=== PATIENT | female | born 1985 | race Caucasian/White ===

== ENCOUNTER 2023-07-15 15:15 | Emergency (ER) | payer OTHER, SELFPAY ==
[2023-07-15 15:47] VITALS: BP 118/75; PULSE 73; RESP 18; TEMP 36.6; O2SAT 97; BMI 30.2
[2023-07-15 16:53] LABS: Basophils % 0.4 %; Eosinophils # 0.1 10^3/uL (0.0-0.8); Eosinophils % 1.6 %; Hematocrit 43.3 % (36-47); Lymphocytes # 2.1 10^3/uL (0.8-4.8); Mean Corpuscular HGB Conc 33.9 g/dL (30-55); Mean Corpuscular Hemoglobin 31.3 pg (27-33); Mean Corpuscular Volume 92.3 fl (85-98); Mean Platelet Volume 10.6 fL (7.4-10.4); Monocytes # 0.3 10^3/uL (0.2-0.9); Monocytes % 6.2 %; Neutrophils # 2.55 10^3/uL (1.8-7.7); Neutrophils % 50.8 %; Nucleated Red Blood Cells % 0 %; Platelet Count 228 10^3/cmm (157-399); Red Blood Count 4.69 10^6/uL (3.85-5.65); Red Cell Distribution Width 12.2 % (12.1-15.1); White Blood Count 5.02 10^3/uL (3.29-11.43)
[2023-07-15 17:19] LABS: Alanine Aminotransferase 23 U/L (0-33); Albumin Level 4.4 g/dL (3.5-5.2); Alkaline Phosphatase 58 U/L (35-105); Anion Gap 12.6 (5-19); Aspartate Amino Transferase 23 U/L (0-32); Blood Urea Nitrogen 15 mg/dL (6-20); Calcium 9.4 mg/dL (8.5-10.5); Carbon Dioxide 28 mmol/L (22-29); Chloride 102 mmol/L (98-107); Globulin 2.9 g/dL (1.3-4.6); Glomerular Filtration Rate 69.7 mL/min (90-130); Glucose 90 mg/dL (65-115); Osmolality Calculated 286 mOsm/kg (285-295); Potassium 4.6 mmol/L (3.5-5.1); Sodium 138 mmol/L (136-145); Total Bilirubin 0.3 mg/dL (0.15-1.2); Total Protein 7.3 g/dL (6.6-8.7)
--- NOTE | 2023-07-15 17:45 | XRR_ITS ---
PROCEDURE INFORMATION: Exam: XR Chest Exam date and time: 07/15/2023 5:51 PM Age: 37 years old Clinical indication: Shortness of breath; Additional info: Lupus flare TECHNIQUE: Imaging protocol: Radiologic exam of the chest. Views: 1 view. COMPARISON: No relevant prior studies available. FINDINGS: Lungs: Unremarkable. No consolidation. Pleural spaces: Unremarkable. No pleural effusion. No pneumothorax. Heart/Mediastinum: Unremarkable. No cardiomegaly. Bones/joints: Unremarkable. XR/XR chest 1V portable [id number] IMPRESSION: No acute findings.
--- NOTE | 2023-07-15 17:48 | PC.NURSE ---
ASSUMED CARE AT 1730
--- NOTE | 2023-07-15 17:57 | ED_ITS ---
HPI - General Adult 2 General: Chief complaint: General Medical Stated complaint: lupus flair,dx lupus Time Seen by Provider: 07/15/23 17:42 History of Present Illness: 37-year-old female presents to the [facility] ency department with complaints of having a lupus flare. She states that she was diagnosed several years ago in [facility] where she initially lived. She states she is now down in this area because her is and they have moved to this area. She states that she initially was diagnosed with her lupus flare secondary to a malar rash and a generalized chest rash as well as increased fatigue and malaise and renal dysfunction when she was in [facility]. She states that she has been doing well since that time. She states since moving here she is trying to be, established with her primary care provider and a communications assistant. She states she does take hydroxychloroquine on a regular basis. She states over the past 4 days she started noticing that she was having a lupus flare as she has increased generalized pain and kidney pain as well as headache. She states she has had increasing joint pain over the same duration of time. She denies fevers chills or night sweats. She denies known recent trauma or injury. She states her current generalized joint pain is a 5 out of 10, and movement of course makes the pain worse. Associated symptoms: Reports headache(s) Review of Systems 2 General: Reports: 10 or more systems reviewed and unremarkable except in HPI and below Musc: Reports: extremity pain, joint pain and muscle weakness Neuro: Reports: headache(s) and dizziness Physical Exam 2 Narrative: EXAM NARRATIVE: Constitutional: the patient appears well nourished and with normal development. Vital signs reviewed as documented. No acute distress. HENMT: Normocephalic, atraumatic. Extermal ears with normal appearance without drainage. Nose without drainage, normal appearance. Mucus membranes moist. Neck is supple, No jugular venous distension, trachea is midline, no appreciable carotid bruits. No lymphadenopathy. No meningeal signs. Flexion, extension and lateral rotation is without pain. Eyes: Pupils are equal, round, reactive to light and accommodation. No scleral icterus. Extra-ocular movement are intact. Thorax is symmetrical and with equal rise and fall with respirations. Resp: Lungs are clear to auscultation. No wheezes, rales, crackles or ronchi at present. Cardio: Regular rate and rhythm. Positive S1, S2. No appreciable murmurs, rubs or gallops. GI: Abdominal exam reveals normal bowel sounds to all quadrants. No organomegaly. No obvious palpable masses noted. No hepatomegally appreciated. Soft, nontender to palpation. Extremity: Extremities are non-edematous and both femoral and pedal pulses are 2+ and equal bilaterally. Moves all extremities well, sensation in all extremities. Neuro: Alert and oriented x4, person, place, time and situation. Cranial nerves II through XII are grossly intact, there is no focal neurological deficits that I can appreciate at present. Motor strength in the upper and lower extremities are equal and bilateral 5/5. Psych: Cooperative, calm, normal thought process, appropriate judgment. Skin: No lesions, rashes. No gross abnormalities noted. Back: Symmetrical, no obvious deformity, No CVA tenderness Course 2 Reevaluation(s): Reevaluation #1: Reevaluation of the patient's demonstrates significant improvement in control of her pain. The patient did receive corticosteroid and nonsteroidal anti- inflammatory ketorolac. I will prescribe her prednisone and naproxen and I have also provided her with follow-up with primary care provider and rheumatology. Her twelve-lead EKG did not show any abnormality I reviewed her radiographic examination of her chest and there is no significant finding there. I discussed her laboratory findings with her. Time: 19:06 Vital Signs: Vital signs: Vital Signs Temperature 97.9 F 07/15/23 15:47 Pulse Rate 63 07/15/23 18:22 Respiratory Rate 18 07/15/23 15:47 Blood Pressure 109/67 07/15/23 18:22 Pulse Oximetry 99 07/15/23 18:22 Oxygen Delivery Me thod Room Air 07/15/23 18:22 MDM - General Adult Medical Decision Making Physical exam completed and documented, I will obtain a CBC, CMP, ESR chest x- ray and EKG for evaluation. I will provide her Toradol and high-dose corticosteroids for her lupus flare. Will also provide her written prescriptions for NSAIDs and corticosteroids. I discussed with the options for primary care and rheumatology in the area and we will provide her that information upon discharge. Differential Diagnosis Myalgias, lupus flare, Lab Data I reviewed the patient's lab results. 07/15/23 16:30 07/15/23 16:30 Radiology Impressions Chest X-Ray 07/15/23 17:45 IMPRESSION: No acute findings. Laboratory Results WBC 5.02 10^3/uL (3.29-11.43) 07/15/23 16:30 RBC 4.69 10^6/uL (3.85-5.65) 07/15/23 16:30 Hgb 14.70 g/dL (11.27-16.99) 07/15/23 16:30 Hct 43.3 % (36-47) 07/15/23 16:30 MCV 92.3 fl (85-98) 07/15/23 16:30 MCH 31.3 pg (27-33) 07/15/23 16: MCHC 33.9 g/dL (30-55) 07/15/23 16:30 RDW 12.2 % (12.1-15.1) 07/15/23 16:30 Plt Count 228 10^3/cmm (157-399) 07/15/23 16:30 MPV 10.6 fL (7.4-10.4) H 07/15/23 16:30 Neut % (Auto) 50.8 % 07/15/23 16:30 Lymph % (Auto) 41.0 % 07/15/23 16:30 Early % (Auto) 6.2 % 07/15/23 16:30 Eos % (Auto) 1.6 % 07/15/23 16:30 Baso % (Auto) 0.4 % 07/15/23 16:30 Neut # (Auto) 2.55 10^3/uL (1.8-7.7) 07/15/23 16:30 Lymph # (Auto) 2.1 10^3/uL (0.8-4.8) 07/15/23 16:30 Early # (Auto) 0.3 10^3/uL (0.2-0.9) 07/15/23 16:30 Eos # (Auto) 0.1 10^3/uL (0.0-0.8) 07/15/23 16:30 Baso # (Auto) 0.0 10^3/uL (0.0-0.1) 07/15/23 16:30 Nucleated RBC % (auto) 0 % 07/15/23 16:30 Nucleated RBCs # 0.0 /100WBC 07/15/23 16:30 Sodium 138 mmol/L (136-145) 07/15/23 16:30 Potassium 4.6 mmol/L (3.5-5.1) 07/15/23 16:30 Chloride 102 mmol/L (98-107) 07/15/23 16:30 Carbon Dioxide 28 mmol/L (22-29) 07/15/23 16:30 Anion Gap 12.6 (5-19) 07/15/23 16:30 BUN 15 mg/dL (6-20) 07/15/23 16:30 Creatinine 0.9 mg/dL (0.5-0.9) 07/15/23 16:30 GFR Calculation 69.7 mL/min (90-130) L 07/15/23 16:30 Glucose 90 mg/dL (65-115) 07/15/23 16:30 Calculated Osmolality 286 mOsm/kg (285-295) 07/15/23 16:30 Calcium 9.4 mg/dL (8.5-10.5) 07/15/23 16:30 Total Bilirubin 0.3 mg/dL (0.15-1.2) 07/15/23 16:30 AST 23 U/L (0-32) 07/15/23 16:30 ALT 23 U/L (0-33) 07/15/23 16:30 Alkaline Phosphatase 58 U/L (35-105) 07/15/23 16:30 Total Protein 7.3 g/dL (6.6-8.7) 07/15/23 16:30 Albumin 4.4 g/dL (3.5-5.2) 07/15/23 16:30 Globulin 2.9 g/dL (1.3-4.6) 07/15/23 16:30 Urine Color Yellow (Yellow) 07/15/23 17:50 Urine Appearance Clear (CLEAR) 07/15/23 17:50 Urine pH 7 (5-7) 07/15/23 17:50 Ur Specific [place] 1.010 (1.005-1.030) 07/15/23 17:50 Urine Protein Neg (Negative) 07/15/23 17:50 Urine Glucose (UA) Norm (Normal) 07/15/23 17:50 Urine Ketones Negative (Negative) 07/15/23 17:50 Urine Blood Neg (Negative) 07/15/23 17:50 Urine Nitrate Negative (Negative) 07/15/23 17:50 Urine Bilirubin Neg (Negative) 07/15/23 17:50 Urine Urobilinogen Norm mg/dL (Negative) 07/15/23 17:50 Ur Leukocyte Esterase Negative (Negative) 07/15/23 17:50 All radiology interpretation(s) finalized by discharge EKG Data Twelve-lead EKG obtained at 1813 reviewed at 1814 demonstrates underlying sinus rhythm with sinus arrhythmia with respiratory variation. Ventricular : Computer generated interpretation: Chest X-Ray 07/15/23 17:45 IMPRESSION: No acute findings. Discharge Plan Discharge Patient Disposition: Home Clinical Impression: Lupus arthritis, Myalgia Arthralgia Qualifiers: Joint pain location: wrist Laterality: right Qualified Code(s): M25.531 - Pain in right wrist Condition: Stable Prescriptions: New prednisone 20 mg tablet 60 mg PO DAILY 5 Days Qty: 15 0RF naproxen 500 mg tablet 500 mg PO Q12H PRN (Reason: pain) Qty: 60 0RF Discharge Orders: Discharge ED (Routine); Ordered 07/15/23 Ordered By: Maurice Oglesby Referrals: Diann Greenwood MD [Physician] - Nagi Lopez DO [Physician] - Discharge Diet: Advance as tolerated Discharge Activity: Resume usual activity Patient Instructions: Opioid Safety, Pain Management Activity Restrictions/Additional Instructions: Activity Restrictions/Additional Instructions: Thank you for choosing [facility] for your healthcare needs today. Please realize that you were seen in the Emergency Department and that we are providing you with an emergency medical screening exam and this may not be complete and all inclusive of all the testing and or medical work-up that you may need to determine your ailment or severity of your illness. It is very important that you follow-up as instructed with your Primary care provider or Specialist for additional evaluation and to discuss your medical treatment plan. You may return to the Emergency Department should you have concerns or if your condition changes or worsens in any way. Coding Level of Care Code ED Master [employer]acht for Cher Antoine
--- NOTE | 2023-07-15 18:13 | ECG_ITS ---
[facility] Test Date: 2023-07-15 Pat Name: Lalitha Cates Department: Room: Gender: Female Posting Clerk: : 1985 Requested By: Maurice Oglesby Order Number: [id number] Dash MD: Annita Farris M.D. Measurements Intervals [place] Rate: 68 P: 62 WY: 142 QRS: 39 QRSD: 71 T: 55 QT: 394 QTc: 420 Interpretive Statements SINUS RHYTHM WITH SINUS ARRHYTHMIA No previous ECG available for comparison Electronically Signed On 07-15-2023 22:13:42 FUEL RETROFITTING TECHNICIAN by Annita Farris M.D. [id number]
[2023-07-15 18:22] VITALS: BP 109/67; PULSE 63; O2SAT 99
[2023-07-15 18:30] VITALS: BP 109/66; PULSE 67; O2SAT 100
[2023-07-15] MEDS: methylPREDNISolone sod succ 125 mg/2 mL INJ IVP (18:30)
[2023-07-15] MEDS: ketorolac 30 mg/mL INJ IVP (18:30)
[2023-07-15 18:35] LABS: Add Urine Microscopic? NO; Charge for UA Resulting for Rev
[2023-07-15 18:44] LABS: Bilirubin Urine Neg (Negative); Blood Urine Neg (Negative); Glucose Urine UA Norm (Normal); Ketones Urine Negative (Negative); Leukocyte Esterase Urine Negative (Negative); Nitrate Urine Negative (Negative); Protein Urine Neg (Negative); Urine Appearance Clear (CLEAR); Urine Color Yellow (Yellow); Urobilinogen Urine Norm (Negative); pH Urine 7 (5-7)
[2023-07-15 19:28] VITALS: BP 103/68; PULSE 62; O2SAT 99
[2023-07-15 20:46] LABS: HCG Qualitative Urine. Negative (Negative)
== END 2023-07-15 19:32 | disposition home or self-care (01) ==
PROVIDERS: Emergency Medicine; Physician Assistant; Emergency Provider Internal Medicine
DX: M32.9 Systemic lupus erythematosus, unspecified (principal); M25.531 Pain in right wrist; M13.80 Other specified arthritis, unspecified site; M79.10 Myalgia, unspecified site
CPT/HCPCS: 36415; 71045; 80053; 81003; 81025; 85025; 93005; 96374; 96375; 99285; J1885; J2930

== ENCOUNTER → 2023-08-14 14:19 | Outpatient (BNVA) | payer OTHER, SELFPAY | PROVIDERS: Visit Provider Registered Nurse Neonatal Intensive Care | DX: R05.9 Cough, unspecified (principal); J06.9 Acute upper respiratory infection, unspecified | CPT/HCPCS: 87400; 87426 ==

== ENCOUNTER 2024-12-21 11:41 | Emergency (ER) | payer OTHER, SELFPAY ==
[2024-12-21 11:53] VITALS: BP 112/88; PULSE 112; RESP 16; TEMP 36.6; O2SAT 98; BMI 26.6
[2024-12-21 12:21] LABS: Basophils % 0.4 %; Eosinophils # 0.1 10^3/uL (0.0-0.8); Eosinophils % 1.5 %; Hematocrit 41.9 % (36-47); Lymphocytes # 1.7 10^3/uL (0.8-4.8); Lymphocytes % 33.7 %; Mean Corpuscular HGB Conc 34.4 g/dL (30-55); Mean Corpuscular Hemoglobin 30.8 pg (27-33); Mean Corpuscular Volume 89.7 fl (85-98); Mean Platelet Volume 10.6 fL (7.4-10.4); Monocytes # 0.4 10^3/uL (0.2-0.9); Neutrophils # 2.97 10^3/uL (1.8-7.7); Neutrophils % 57.4 %; Nucleated Red Blood Cells % 0 %; Platelet Count 218 10^3/cmm (157-399); Red Blood Count 4.67 10^6/uL (3.85-5.65); Red Cell Distribution Width 12.3 % (12.1-15.1); White Blood Count 5.17 10^3/uL (3.29-11.43)
[2024-12-21 12:47] LABS: Alanine Aminotransferase 18 U/L (0-33); Albumin Level 4.2 g/dL (3.5-5.2); Alkaline Phosphatase 62 U/L (35-105); Aspartate Amino Transferase 23 U/L (0-32); Blood Urea Nitrogen 8 mg/dL (6-20); Calcium 9.3 mg/dL (8.5-10.5); Carbon Dioxide 25 mmol/L (22-29); Chloride 106 mmol/L (98-107); Globulin 3.2 g/dL (1.3-4.6); Glomerular Filtration Rate 92.2 mL/min (90-130); Glucose 92 mg/dL (65-115); Osmolality Calculated 288 mOsm/kg (285-295); Sodium 140 mmol/L (136-145); Total Bilirubin 0.4 mg/dL (0.15-1.2); Total Protein 7.4 g/dL (6.6-8.7)
--- NOTE | 2024-12-21 14:56 | W.ED.GENADLT ---
HPI - General Adult General: Chief complaint: General Medical Stated complaint: loopis flare Time Seen by Provider: 12/21/24 13:31 Source: patient Mode of arrival: ambulatory Limitations: no limitations History of Present Illness: Patient is a 39-year-old female presenting to the emergency department with 6 days of lower extremity skin lesions and concerns for a possible lupus flare. Patient reports that this started as a mosquito bite on her left lower extremity which became itchy, swollen, and painful. She reports that more of these lesions appeared on her bilateral lower extremities, hips, and buttocks over the last 5 days. She states that they are warm to touch and have a nodule underneath. Has had identical lesions before with lupus flares. Patient reports occasional subjective fevers, tmax on measured fevers was 101 ?F once. She also complains of fatigue, nausea and decreased appetite. She also reports intermittent blurry vision that quickly resolves. She remains consistent on her maintenance hydroxychloroquine and has been taking prednisone 50 mg daily for the last 6 days. Does not see rheumatology. Onset (ago): week(s) Location: buttocks and lower extremity (Bilateral) Severity: moderate Quality: burning and aching Pain Consistency: constant Relieving factors: none Exacerbating factors: movement Associated symptoms: Reports decreased appetite, nausea and rash; Deny chest pain, dyspnea, palpitations, syncope or vomiting Treatments prior to arrival: other (Prednisone 50 mg daily x 6 days) Related Data Home Medications ?Medication ?Instructions ?Recorded ?Confirmed hydroxychloroquine 200 mg tablet 200 mg PO BID 12/21/24 12/21/24 levothyroxine 75 mcg tablet 75 mcg PO DAILY 12/21/24 12/21/24 montelukast 10 mg tablet 10 mg PO DAILY 12/21/24 12/21/24 phentermine 37.5 mg capsule 37.5 mg PO QAM 12/21/24 12/21/24 sulfamethoxazole 800 1 tab PO BID 12/21/24 12/21/24 mg-trimethoprim 160 mg tablet Previous Rx's ?Medication ?Instructions ?Recorded naproxen 500 mg tablet 500 mg PO Q12H PRN pain #60 tabs 07/15/23 Allergies Allergy/AdvReac Type Severity Reaction Status Date / Time diphenhydramine Allergy ADR-Irritab Verified 08/14/23 14:12 le nitrofurantoin (From Allergy ALGY-Hives Verified 08/14/23 14:12 Macrobid) Review of Systems Const: Reports: fever(s) (one fever reading of 101), body aches, change in appetite and fatigue; Denies: chills Eyes: Reports: blurry vision (occasional/lasting seconds); Denies: floaters or seeing flashes ENMT: Denies: throat pain, odynophagia or oral sores Card: Denies: chest pain, palpitations, irregular heart rhythm, edema, syncope or pre-syncope Resp: Denies: dyspnea GI: Reports: nausea; Denies: abdominal pain, vomiting or diarrhea : Denies: flank pain or dysuria Musc: Reports: extremity pain and joint pain; Denies: neck pain, back pain, extremity swelling (Bilateral lower extremities), joint swelling, joint redness, joint warmth, limited range of motion, muscle cramps or muscle weakness Skin/Breast: Reports: rash, erythema, skin pain and skin tenderness Neuro: Reports: difficulty walking (due to pain in legs); Denies: numbness in extremities, weakness in extremities or sensory changes Physical Exam Const: COMMON NORMALS: no acute distress, average body habitus, patient oriented x3, no limitations, healthy appearing, alert and well nourished HENMT: COMMON NORMALS: normocephalic, atraumatic and hearing grossly normal bilaterally HEAD & SCALP: normocephalic and atraumatic Eye: COMMON NORMALS: Equal, round and reactive pupils present, EOMs intact bilaterally and conjunctivae normal CONJUNCTIVA: Yes conjunctivae normal PUPIL: Yes Equal, round and reactive pupils present Neck/C-Spine: COMMON NORMALS: no lymphadenopathy and no JVD Chest: COMMONS NORMALS: normal inspection of the chest and normal palpation of entire chest wall Resp: COMMON NORMALS: normal respiratory effort, No retractions, No use of accessory muscles and clear to auscultation bilaterally AUSCULTATION: clear to auscultation bilaterally Cardio: COMMON NORMALS: no JVD, regular rate, regular rhythm, S1 normal heart sound present and S2 normal heart sound present RATE: regular rate RHYTHM: regular rhythm HEART SOUNDS: S1 normal heart sound present and S2 normal heart sound present Back/Pelvis: COMMON NORMALS: thoracic and lumbar spine normal to inspection Extremity: COMMON NORMALS: capillary refill normal, no joint enlargement, no clubbing, cyanosis or edema, no calf tenderness and no pedal edema GENERAL: Yes normal exam except as noted, No clubbing, No edema and No mottling OTHER: scattered erythematous nodules to bilateral LEs that are tender to touch; maybe 7 in total between the two lower legs; legs otherwise are normal in appearance without edema; NV intact Neuro: HELEN COMA SCALE: document GCS findings [place] coma scale eye opening: Spontaneous Helen coma scale verbal response: Orientated Helen coma scale motor response: Obey commands Helen coma scale total score: 15 COMMON NORMALS: patient oriented x3, moves all extremities, no focal motor deficits and no sensory deficits noted SENSORIUM/ORIENTATION: Yes alert Skin: NARRATIVE SKIN EXAM: see above Course Vital Signs: Vital signs: Vital Signs Temperature 97.9 F 12/21/24 11:53 Pulse Rate 93 12/21/24 16:12 Respiratory Rate 16 12/21/24 11:53 Blood Pressure 98/55 12/21/24 16:12 Pulse Oximetry 96 12/21/24 16:12 Oxygen Delivery Me thod Room Air 12/21/24 16:12 MDM - General Adult Medical Decision Making Patient clinically appears in absolutely no acute distress. Vital signs were stable upon arrival and have been throughout her ED stay. Last repeat blood pressure was low at 98/55 but she was soundly sleeping. Blood work showing a normal white count. She has a normal ESR. Scantly elevated CRP at 7.5. Her chemistry is unremarkable. The differential for patient's symptoms including joint/extremity pain, erythematous nodular rash, and other nonspecific symptoms is vast. At this time I have a low suspicion for emergent or life-threatening etiology. Certainly this could be a lupus flare. She was given IV Solu-Medrol and Toradol here. Recommend she follow-up with her primary care provider later this week. Case management referral was placed to get her set up with Dr. Crocker here at [facility] for rheumatology care. Return precautions discussed. Medical Records I reviewed the patient's medical records. Lab Data I reviewed the patient's lab results. 12/21/24 12:12 12/21/24 12:12 Laboratory Results WBC 5.17 10^3/uL (3.29-11.43) 12/21/24 12:12 RBC 4.67 10^6/uL (3.85-5.65) 12/21/24 12:12 Hgb 14.40 g/dL (11.27-16.99) 12/21/24 12:12 Hct 41.9 % (36-47) 12/21/24 12:12 MCV 89.7 fl (85-98) 12/21/24 12:12 MCH 30.8 pg (27-33) 12/21/24 12:12 MCHC 34.4 g/dL (30-55) 12/21/24 12:12 RDW 12.3 % (12.1-15.1) 12/21/24 12:12 Plt Count 218 10^3/cmm (157-399) 12/21/24 12:12 MPV 10.6 fL (7.4-10.4) H 12/21/24 12:12 Neut % (Auto) 57.4 % 12/21/24 12:12 Lymph % (Auto) 33.7 % 12/21/24 12:12 Martin % (Auto) 7.0 % 12/21/24 12:12 Eos % (Auto) 1.5 % 12/21/24 12:12 Baso % (Auto) 0.4 % 12/21/24 12:12 Neut # (Auto) 2.97 10^3/uL (1.8-7.7) 12/21/24 12:12 Lymph # (Auto) 1.7 10^3/uL (0.8-4.8) 12/21/24 12:12 Martin # (Auto) 0.4 10^3/uL (0.2-0.9) 12/21/24 12:12 Eos # (Auto) 0.1 10^3/uL (0.0-0.8) 12/21/24 12:12 Baso # (Auto) 0.0 10^3/uL (0.0-0.1) 12/21/24 12:12 Nucleated RBC % (auto) 0 % 12/21/24 12:12 Nucleated RBCs # 0.0 /100WBC 12/21/24 12:12 ESR 5 mm/hr (0-15) 12/21/24 12:12 Sodium 140 mmol/L (136-145) 12/21/24 12:12 Potassium 4.0 mmol/L (3.5-5.1) 12/21/24 12:12 Chloride 106 mmol/L (98-107) 12/21/24 12:12 Carbon Dioxide 25 mmol/L (22-29) 12/21/24 12:12 Anion Gap 13.0 (5-19) 12/21/24 12:12 BUN 8 mg/dL (6-20) 12/21/24 12:12 Creatinine 0.7 mg/dL (0.5-0.9) 12/21/24 12:12 GFR Calculation 92.2 mL/min (90-130) 12/21/24 12:12 Glucose 92 mg/dL (65-115) 12/21/24 12:12 Calculated Osmolality 288 mOsm/kg (285-295) 12/21/24 12:12 Calcium 9.3 mg/dL (8.5-10.5) 12/21/24 12:12 Total Bilirubin 0.4 mg/dL (0.15-1.2) 12/21/24 12:12 AST 23 U/L (0-32) 12/21/24 12:12 ALT 18 U/L (0-33) 12/21/24 12:12 Alkaline Phosphatase 62 U/L (35-105) 12/21/24 12:12 C-Reactive Protein 7.5 mg/L (0.0-4.9) H 12/21/24 12:12 Total Protein 7.4 g/dL (6.6-8.7) 12/21/24 12:12 Albumin 4.2 g/dL (3.5-5.2) 12/21/24 12:12 Globulin 3.2 g/dL (1.3-4.6) 12/21/24 12:12 No radiology studies performed this visit Discharge Plan Discharge Patient Disposition: Home Clinical Impression: Erythematous skin nodule Joint pain Qualifiers: Joint pain location: unspecified Qualified Code(s): M25.50 - Pain in unspecified joint Condition: Stable Prescriptions: No Action sulfamethoxazole-trimethoprim 800-160 mg tablet 1 tab PO BID levothyroxine 75 mcg tablet 75 mcg PO DAILY montelukast 10 mg tablet 10 mg PO DAILY hydroxychloroquine 200 mg tablet 200 mg PO BID phentermine 37.5 mg capsule 37.5 mg PO QAM naproxen 500 mg tablet 500 mg PO Q12H PRN (Reason: pain) Qty: 60 0RF Discharge Orders: Discharge ED (Routine); Ordered 12/21/24 Ordered By: Maryan Raya Activity Restrictions/Additional Instructions: As we discussed, please follow-up with primary care later this week for re-evaluation. Your blood work here was reassuring. Continue your prednisone and anti-inflammatories at home. You may return to the emergency department at anytime for any further concerns you may have. Print Language: Khmer Coding Level of Care Code ED Electronic Warfare Technician for Cher Antoine
[2024-12-21 15:06] LABS: Erythrocyte Sedimentation Rate 5 mm/hr (0-15)
[2024-12-21 15:29] LABS: C Reactive Protein 7.5 mg/L (0.0-4.9)
[2024-12-21] MEDS: ketorolac 30 mg/mL INJ IVP (15:47)
[2024-12-21] MEDS: methylPREDNISolone sod succ 125 mg/2 mL INJ IVP (15:47)
[2024-12-21 16:12] VITALS: BP 98/55; PULSE 93; O2SAT 96
[2024-12-21 16:31] VITALS: BP 98/55; PULSE 78; O2SAT 91
== END 2024-12-21 16:32 | disposition home or self-care (01) ==
PROVIDERS: Emergency Medicine; Emergency Provider Physician Assistant
DX: L53.9 Erythematous condition, unspecified (principal)
CPT/HCPCS: 36415; 80053; 85025; 85651; 86140; 96374; 96375; 99284; J1885; J2919

== ENCOUNTER 2025-05-31 05:58 | Emergency (ER) | payer OTHER, SELFPAY ==
[2025-05-31 06:05] VITALS: BP 109/74; PULSE 89; RESP 17; O2SAT 99; BMI 26.7
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
--- OUTSIDE RECORDS SUMMARY | 2025-05-31 06:05 | XMS_ITS | Clinical Summary ---
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
[2025-05-31 06:09] VITALS: TEMP 36.4
[2025-05-31] MEDS: orphenadrine 30 mg/mL Inj 2 mL 60 MG IVP (06:49)
[2025-05-31] MEDS: methylPREDNISolone sod succ 125 mg/2 mL INJ IVP (06:49)
[2025-05-31 06:50] VITALS: RESP 20
[2025-05-31] MEDS: morphine 4 mg/mL SDV 1 mL IVP (06:50)
[2025-05-31 08:18] VITALS: BP 91/65; PULSE 74; O2SAT 98
== END 2025-05-31 08:23 | disposition home or self-care (01) ==
PROVIDERS: Emergency Provider Family Medicine
DX: S16.1XXA Strain of muscle, fascia and tendon at neck level, initial encounter (principal); V48.0XXA Car driver injured in noncollision transport accident in nontraffic accident, initial encounter
CPT/HCPCS: 36415; 96374; 96375; 99284; J1885; J2270; J2360; J2919